=== PATIENT | female | born 1975 | race African-American/Black ===

== ENCOUNTER 2017-05-10 02:35 | Emergency (ER) | payer OTHER ==
[~2017-05-10] VITALS: Ht 160 cm; Wt 63.0 kg
[2017-05-10 06:57] VITALS: BP 130/69
== END 2017-05-10 07:51 | disposition home or self-care (01) ==
LOC: ER 02:35
DX: S09.90XA Unspecified injury of head, initial encounter (principal); S09.93XA Unspecified injury of face, initial encounter; R10.9 Unspecified abdominal pain; R07.81 Pleurodynia; K59.00 Constipation, unspecified; Y09 Assault by unspecified means
CPT/HCPCS: 70486; 71111; 74176; 99284

== ENCOUNTER 2018-04-11 11:05 | Emergency (ER) | payer OTHER ==
[~2018-04-11] VITALS: Ht 157.5 cm; Wt 77.0 kg
[2018-04-11 13:33] LABS: BASOPHILS % 0.5 % (0.0-2.0); EOSINOPHILS % 3.6 % (0.0-5.0); HEMATOCRIT. 43.2 % (36.0-48.0); HEMOGLOBIN. 14.5 g/dL (12.0-16.0); LYMPHOCYTES % 40.1 % (20.0-50.0); MEAN CORPUSCULAR HEMOGLOBIN 30.6 pg (28.0-32.0); MEAN CORPUSCULAR VOLUME 91.6 fL (81.0-99.0); MEAN PLATELET VOLUME 9.8 fl (7.4-10.4); MONOCYTES % 10.2 % (2.0-8.0); NEUTROPHILS % 45.6 % (40.0-76.0); PLATELET 174 x1000/uL (130-400); RED BLOOD CELL COUNT 4.72 mill/uL (4.2-5.4); RED CELL DISTRIBUTION WIDTH 13.7 % (11.6-14.6)
[2018-04-11 13:40] LABS: CHLORIDE 102 mEq/L (98-107)
[2018-04-11 14:14] VITALS: BP 112/65
== END 2018-04-11 14:18 | disposition home or self-care (01) ==
LOC: ER 14:18
DX: R25.2 Cramp and spasm (principal); M79.89 Other specified soft tissue disorders; M79.605 Pain in left leg; Z98.890 Other specified postprocedural states
CPT/HCPCS: 36415; 80048; 81025; 85025; 93971; 99285